=== PATIENT | male | born 1960 | race Caucasian/White ===

== ENCOUNTER 2021-01-09 07:51 | Day surgery (SDC) | payer BC ==
[2021-01-08 09:37] VITALS: BMI 30.9
[2021-01-09] MEDS ORDERED: AFRIN NASAL MIST 15 ML BOT ONE ×2 (08:41→09:08)
[2021-01-09] MEDS ORDERED: Bacitracin Zinc Ointment 30 gm TUBE ONE (09:08)
[2021-01-09] MEDS ORDERED: Lidocaine 1% w/Epinephrine 1:100K 20 ML VIAL ONE (09:08)
[2021-01-09] MEDS ORDERED: Fentanyl 100 MCG/2 ML VIAL ONE ×2 (09:21→10:47)
[2021-01-09] MEDS ORDERED: Midazolam HCl 2 mg/2 ml Vial ONE (09:21)
[2021-01-09] MEDS ORDERED: Lidocaine 1% PF 5 ML VIAL ONE (10:15)
[2021-01-09] MEDS ORDERED: Dexamethasone 20 MG/5 ML VIAL ONE (10:15)
[2021-01-09] MEDS ORDERED: Ondansetron PF 4 MG/2 ML Vial ONE (10:15)
[2021-01-09] MEDS ORDERED: Succinylcholine 200 MG/10 ml SYRINGE FS ONE (10:15)
[2021-01-09] MEDS ORDERED: PROPOFOL 200 MG/20 ML VIAL ONE (10:15)
[2021-01-09] MEDS ORDERED: hydrALAZINE 20 MG/ML VIAL ONE (11:37)
== END 2021-01-09 13:48 | disposition home or self-care (01) ==
LOC: SDC 07:51
PROVIDERS: ATTEND Otolaryngology Plastic Surgery within the Head & Neck
PROC: 09SM0ZZ Reposition Nasal Septum, Open Approach (ICD-10-PCS; principal; 2021-01-09)
PROC: 099W8ZZ Drainage of Right Sphenoid Sinus, Via Natural or Artificial Opening Endoscopic (ICD-10-PCS; principal; 2021-01-09)
PROC: 09TU8ZZ Resection of Right Ethmoid Sinus, Via Natural or Artificial Opening Endoscopic (ICD-10-PCS; principal; 2021-01-09)
PROC: 09TL0ZZ Resection of Nasal Turbinate, Open Approach (ICD-10-PCS; principal; 2021-01-09)
PROC: 099R8ZZ Drainage of Left Maxillary Sinus, Via Natural or Artificial Opening Endoscopic (ICD-10-PCS; principal; 2021-01-09)
PROC: 099X8ZZ Drainage of Left Sphenoid Sinus, Via Natural or Artificial Opening Endoscopic (ICD-10-PCS; principal; 2021-01-09)
PROC: 09TV8ZZ Resection of Left Ethmoid Sinus, Via Natural or Artificial Opening Endoscopic (ICD-10-PCS; principal; 2021-01-09)
PROC: 09QK0ZZ Repair Nasal Mucosa and Soft Tissue, Open Approach (ICD-10-PCS; principal; 2021-01-09)
PROC: 099S8ZZ Drainage of Right Frontal Sinus, Via Natural or Artificial Opening Endoscopic (ICD-10-PCS; principal; 2021-01-09)
PROC: 099Q8ZZ Drainage of Right Maxillary Sinus, Via Natural or Artificial Opening Endoscopic (ICD-10-PCS; principal; 2021-01-09)
PROC: 099T8ZZ Drainage of Left Frontal Sinus, Via Natural or Artificial Opening Endoscopic (ICD-10-PCS; principal; 2021-01-09)
DX: J32.9 Chronic sinusitis, unspecified (principal); J34.2 Deviated nasal septum; J34.3 Hypertrophy of nasal turbinates; J34.89 Other specified disorders of nose and nasal sinuses; J33.9 Nasal polyp, unspecified; J30.9 Allergic rhinitis, unspecified; I10 Essential (primary) hypertension; I42.9 Cardiomyopathy, unspecified; L40.50 Arthropathic psoriasis, unspecified; M19.90 Unspecified osteoarthritis, unspecified site; E66.9 Obesity, unspecified; Z68.30 Body mass index [BMI] 30.0-30.9, adult; Z87.891 Personal history of nicotine dependence; Z79.899 Other long term (current) drug therapy; Z88.8 Allergy status to other drugs, medicaments and biological substances
CPT/HCPCS: 93005; 93010; J0360; J1100; J2250; J2405; J2704; J3010